=== PATIENT | female | born 1965 | race Caucasian/White ===

== ENCOUNTER 2019-04-19 16:21 | Inpatient (IN) | payer MEDICARE, MEDICAID ==
--- NOTE | 2019-04-19 17:51 | ED Physician Chart ---
ED Chief Complaint/HPI - Patient Information Date Seen:: 04/19/19 Time Seen:: 16:45 Chief Complaint:: Weakness History of Present Illness:: onset x 3 days of weakness, anorexia, and weight loss; no report of/pt denies trauma, H/As, neck pain, cough, C/P, SOB, Abd. Pain, fever, chills, N/V/D/C, SIs , or urinary s/s Allergies:: Allergies Allergy/AdvReac Type Severity Reaction Status Date / Time aspirin Allergy Verified 04/19/19 16:36 lithium Allergy Verified 04/19/19 16:36 Vitals:: Vital Signs - 8 hr 04/19/19 04/19/19 16:47 17:05 Temp 98.2 F 98.4 F HR 79 66 RR 18 18 BP 107/87 124/73 O2 Sat % 97 97 Historian:: Patient, Family Member Review:: Nurse's Note Reviewed, Old Chart Reviewed <Latrell Morrison - Last Filed: 04/19/19 18:11> - Patient Information Allergies:: Allergies Allergy/AdvReac Type Severity Reaction Status Date / Time aspirin Allergy Verified 04/19/19 16:36 lithium Allergy Verified 04/19/19 16:36 Vitals:: Vital Signs - 8 hr 04/19/19 04/19/19 16:47 17:05 Temp 98.2 F 98.4 F HR 79 66 RR 18 18 BP 107/87 124/73 O2 Sat % 97 97 <Reji Esquivel - Last Filed: 04/19/19 21:58> ED Review of Systems - Review of Systems General/Constitutional: No fever, No chills, No weight loss, Weakness, No diaphoresis, No edema, No loss of appetite Skin: No skin lesions, No rash, No bruising Head: No headache, No light-headedness Eyes: No loss of vision, No pain, No diplopia ENT: No earache, No nasal drainage, No sore throat, No tinnitus Neck: No neck pain, No swelling, No thyromegaly, No stiffness, No mass noted Cardio Vascular: No chest pain, No palpitations, No PND, No orthopnea, No edema Pulmonary: No SOB, No cough, No sputum, No wheezing GI: No nausea, No vomiting, No diarrhea, No pain, No melena, No hematochezia, No constipation, No hematemesis G/U: No dysuria, No frequency, No hematuria, No nacturia Senior Pharmacy Technician: No vaginal discharge, No abnormal vaginal bleed, No contraction Musculoskeletal: No bone or joint pain, No back pain, No muscle pain Endocrine: No polyuria, No polydipsia Psychiatric: No prior psych history, No depression, No anxiety, No suicidal ideation, No homicidal ideation, No auditory hallucination, No visual hallucination Hematopoietic: No bruising, No lymphadenopathy Allergic/Immuno: No urticaria, No angioedema Neurological: No syncope, No focal symptoms, Weakness, No paresthesia, No headache, No seizure, No dizziness, No confusion, No vertigo <Latrell Morrison - Last Filed: 04/19/19 18:11> ED Past Medical History - Past Medical History Obtainable: Yes Past Medical History: HTN, Asthma/COPD, PUD/GERD Family History: HTN Social History: Non Smoker, No Alcohol, No Drug Use, Single, Care Facility Surgical History: Cholecystectomy, other (Gastric Bypass Surgery) Psychiatricy History: Bipolar Medication: Reviewed <Latrell Morrison - Last Filed: 04/19/19 18:11> Family Medical History - Family Member Mother History Unknown: Yes <Latrell Morrison - Last Filed: 04/19/19 18:11> ED Physical Exam - Physical Examination General/Constitutional: Awake, Well-developed, well-nourished, Alert, No distress, GCS 15, Non-toxic appearing, Ambulatory Head: Atraumatic Eyes: Lids, conjuctiva normal, PERRL, EOMI Skin: Nl inspection, No rash, No skin lesions, No ecchymosis, Well hydrated, No lymphadenopathy ENMT: External ears, nose nl, TM canals nl, Nasal exam nl, Lips, teeth, gums nl , Oropharynx nl, Tonsils nl Neck: Nontender, Full ROM w/o pain, No JVD, No nuchal rigidity, No bruit, No mass, No stridor Respiratory: Nl effort/Exclusion, Clear to Auscultation, No Wheeze/Rhonchi/Rales Cardio Vascular: RRR, No murmur, gallop, rubs, NL S1 S2, Carotid/Femoral/Distal pulses equal bilaterally GI: No tenderness/rebounding/guarding, No organomegaly, No hernia, Normal BS's, Nondistended, No mass/bruits, No McBurney tenderness : No CVA tenderness Extremities: No tenderness or effusion, Full ROM, normal strength in all extremities, No edema, Normal digits & nails Neuro/Psych: Alert/oriented, DTR's symmetric, Normal sensory exam, Normal motor strength, Judgement/insight normal, Mood normal, Normal gait, No focal deficits Misc: Normal back, No paraspinal tenderness <Latrell Morrison - Last Filed: 04/19/19 18:11> ED Labs/Radiology/EKG Results - Lab Results Comments:: Reviewed <Latrell Morrison - Last Filed: 04/19/19 18:11> - Lab Results Results: Laboratory Tests 04/19/19 04/19/19 04/19/19 19:00 19:00 19:00 WBC 3.9 L RBC 4.44 Hgb 12.5 Hct 37.2 L MCV 83.7 MCH 28.1 MCHC Differential 33.6 RDW 13.4 Plt Count 154 MPV 7.8 Neutrophils % 60.1 Lymphocytes % 29.6 Monocytes % 8.0 Eosinophils % 0.2 Basophils % 2.1 H PT 10.4 INR 1.00 PTT (Actin FS) 35.6 Sodium 135 L Potassium 3.9 Chloride 94 L Carbon Dioxide 34.9 H Anion Gap 10.0 BUN 6 L Creatinine 0.7 Est GFR ( Amer) > 60.0 Est GFR (Non-Af Amer) > 60.0 BUN/Creatinine Ratio 8.6 Glucose 95 Whole Bld Lactic Acid Calcium 8.8 Total Bilirubin 0.4 AST 16 ALT 9 Alkaline Phosphatase 74 Creatine Kinase 16 L Troponin I Total Protein 5.1 L Albumin 2.7 L Globulin 2.4 Albumin/Globulin Ratio 1.1 Amylase 18 L Lipase 13 Serum , Qual 04/19/19 04/19/19 19:00 19:00 WBC RBC Hgb Hct MCV MCH MCHC Differential RDW Plt Count MPV Neutrophils % Lymphocytes % Monocytes % Eosinophils % Basophils % PT INR PTT (Actin FS) Sodium Potassium Chloride Carbon Dioxide Anion Gap BUN Creatinine Est GFR ( Amer) Est GFR (Non-Af Amer) BUN/Creatinine Ratio Glucose Whole Bld Lactic Acid 0.63 Calcium Total Bilirubin AST ALT Alkaline Phosphatase Creatine Kinase Troponin I 0.01 Total Protein Albumin Globulin Albumin/Globulin Ratio Amylase Lipase Serum , Qual NEGATIVE <Reji Esquivel - Last Filed: 04/19/19 21:58> ED Septic Shock - . Is Septic Shock (SBP<90, OR Lactate>4 mmol\L) present?: No - <6hrs of presentation: Vital Signs: Vital Signs - 8 hr 04/19/19 04/19/19 16:47 17:05 Temp 98.2 F 98.4 F HR 79 66 RR 18 18 BP 107/87 124/73 O2 Sat % 97 97 <Latrell Morrison - Last Filed: 04/19/19 18:11> - . Is Septic Shock (SBP<90, OR Lactate>4 mmol\L) present?: No - <6hrs of presentation: Vital Signs: Vital Signs - 8 hr 04/19/19 04/19/19 16:47 17:05 Temp 98.2 F 98.4 F HR 79 66 RR 18 18 BP 107/87 124/73 O2 Sat % 97 97 <Reji Esquivel - Last Filed: 04/19/19 21:58> ED Reassessment (Disposition) - Reassessment Reassessment Condition:: Improved - Diagnosis Diagnosis:: Weakness; Anorexia; Weight Loss <Latrell Morrison - Last Filed: 04/19/19 18:11> - Diagnosis Diagnosis:: Dehydration - Patient Disposition Admitted to:: Med/Surg Spoke to:: Malachi Cook Admitting Medical Physician:: Malachi Cook Condition at Disposition:: Stable, Unchanged <Reji Esquivel - Last Filed: 04/19/19 21:58>
[2019-04-19] MEDS ORDERED: Sodium Chloride 0.9% 1,000 ML IV ONE ×2 (18:14→21:11)
[2019-04-19 19:08] LABS: % BASOPHILS 2.1 % (0.0-2.0); % EOSINOPHILS 0.2 % (0.0-5.0); % LYMPHOCYTES 29.6 % (20.0-50.0); % NEUTROPHILS 60.1 % (40.0-80.0); BASOPHILE ABSOLUTE 0.1 Th/cumm (0-0.2); HEMATOCRIT 37.2 % (41.0-60); HEMOGLOBIN 12.5 gm/dL (12-16); LYMPHOCYTE ABSOLUTE 1.2 Th/cmm (1.5-3.0); MEAN CELL VOLUME 83.7 fl (81-100); MEAN CORPUSCULAR HEMOGLOBIN 28.1 pg (27.0-31.0); MEAN CORPUSCULAR HGB CONC 33.6 pg (28.0-36.0); MONOCYTE ABSOLUTE 0.3 Th/cmm (0.3-1.0); NEUTROPHILE ABSOLUTE 2.3 Th/cmm (1.8-8.0); PLATELET COUNT 154 Th/cmm (150-400); RED BLOOD COUNT 4.44 Mil/cmm (3.80-5.10); RED CELL DISTRIBUTION WIDTH 13.4 % (11.5-20.0)
[2019-04-19 19:10] LABS: WHITE BLOOD COUNT 3.9 Th/cmm (4.8-10.8)
[2019-04-19 19:29] LABS: ALB/GLOB RATIO 1.1 (1.0-1.8); ALBUMIN 2.7 gm/dL (3.7-5.3); ALKALINE PHOSPHATASE 74 U/L (34-104); AMYLASE SERUM 18 U/L (29-103); BILIRUBIN,TOTAL 0.4 mg/dL (0.3-1.0); BUN - UREA NITROGEN 6 mg/dL (7-25); CALCIUM SERUM 8.8 mg/dL (8.6-10.3); CARBON DIOXIDE 34.9 mEq/L (21.0-31.0); CHLORIDE 94 mEq/L (98-107); CREATININE - SERUM 0.7 mg/dL (0.6-1.2); CREATININE KINASE 16 U/L (30-223); GFR AFRICAN-AMERICAN > 60.0 ml/min (>90); GFR NON AFRICAN-AMERICAN > 60.0 ml/min; GLUCOSE 95 mg/dL (70-105); LIPASE 13 U/L (11-82); POTASSIUM SERUM 3.9 mEq/L (3.5-5.1); SGOT 16 U/L (13-39); SGPT/ALT 9 U/L (7-52); SODIUM SERUM 135 mEq/L (136-145); TOTAL PROTEIN,SERUM 5.1 gm/dL (6.0-8.3)
[2019-04-19] MEDS ORDERED: guaiFENesin 200 MG/10 ML UDC PO PRN (21:56)
--- NOTE | 2019-04-19 23:03 | History & Physical ---
ADMIT DATE: 04/20/2019 INTERNAL MEDICINE HISTORY AND PHYSICAL This is a ____ Dr. Gonzalez. CHIEF COMPLAINT: Generalized weakness. HISTORY OF PRESENT ILLNESS: This is a 54-year-old female with history of bipolar disorder, morbid obesity, status post gastric bypass surgery, status post gallbladder surgery. Apparently, was sent from nursing facility by Dr. Gonzalez secondary to not eating, apparently lost 50 pounds in the last few months. The patient just does not have an appetite. The patient admitted for further management. PAST MEDICAL HISTORY: As mentioned in history of present illness. PAST SURGICAL HISTORY: As mentioned above. ALLERGIES: ASPIRIN, LITHIUM. MEDICATIONS: Tylenol, famotidine, pantoprazole, nifedipine, multivitamin, montelukast, Colace, clonidine, Dulcolax, Xanax. FAMILY HISTORY: Noncontributory. SOCIAL HISTORY: The patient is a care home patient, requiring 24-hour total care. REVIEW OF SYSTEMS: This is limited secondary to the patient's current mental state. GENERAL: Complains of significant weight loss. HEENT: No blurred vision or pain. LUNGS: No diagnosis of COPD or asthma. HEART: The patient with history of hypertension. ABDOMEN: History of gastric bypass surgery. No appetite. GENITOURINARY: The patient denies increased frequency or dysuria. NEUROLOGIC: No headache, seizure or syncope. PSYCHIATRIC: As stated above. PHYSICAL EXAMINATION: VITAL SIGNS: Blood pressure 124/73, respirations 18, pulse 66, temperature 98.4, morbidly obese female in no acute distress. NECK: Supple. No mass. LUNGS: Equal breath sounds with few rhonchi. HEART: Regular rate and rhythm without appreciable murmur. ABDOMEN: Soft, globular. EXTREMITIES: Positive excoriations. NEUROLOGIC: Limited in all 4 extremities. LABORATORY DATA: WBC 3.9, hemoglobin 12.5, platelets 154. Sodium 135, potassium 3.9, BUN 6, creatinine 0.7. Troponin negative x 1. Albumin 2.7. ASSESSMENT AND PLAN: Anorexia, failure to thrive and bipolar disorder, morbid obesity, hyponatremia, protein-calorie malnutrition. We will continue the patient on IV hydration. We will refer the patient to Oncology for workup as well as GI for endoscopy. Psychiatry has also been consulted, Dr. Vazquez. We will send calcium markers. We will perform a calorie count. We will obviously not put a G-tube if it is not appropriate, which according to nursing was the patient's request. We will appropriately manage the patient. JOB# [id number]
[2019-04-19] MEDS: D5-0.45NS 1,000 ML IV SCH (23:22)
[2019-04-20] MEDS ORDERED: Non-Formulary Item 1 EA (Omeprazole [Omeprazole] 20 MG) PO SCH (07:30)
--- NOTE | 2019-04-20 09:05 | Internal Medicine Prog Note ---
Internal Medicine Subjective - Subjective Patient seen and examined:: with staff, chart reviewed, other (states no appetite) Patient is:: awake, verbal, interactive, in bed Patient Complaints of:: vomitting, constipation, unable to sleep, weight loss Per staff patient has:: no adverse event, no episodes of fall, poor appetite, poor oral intake, tolerating meds Internal Medicine Objective - Results Result Diagrams: 04/19/19 19:00 04/19/19 19: Recent Labs: Laboratory Last Values WBC 3.9 Th/cmm (4.8-10.8) L 04/19/19 19:00 RBC 4.44 Mil/cmm (3.80-5.10) 04/19/19: Hgb 12.5 gm/dL (12-16) 04/19/19: Hct 37.2 % (41.0-60) L 04/19/19:00 MCV 83.7 fl (81-100) 04/19/19:00 MCH 28.1 pg (27.0-31.0) 04/19/19: MCHC Differential 33.6 pg (28.0-36.0) 04/19/19: RDW 13.4 % (11.5-20.0) 04/19/19: Plt Count 154 Th/cmm (150-400) 04/19/19 19:00 MPV 7.8 fl 04/19/19 19:00 Neutrophils % 60.1 % (40.0-80.0) 04/19/19: Lymphocytes % 29.6 % (20.0-50.0) 04/19/19: Monocytes % 8.0 % (2.0-10.0) 04/19/19 19:00 Eosinophils % 0.2 % (0.0-5.0) 04/19/19: Basophils % 2.1 % (0.0-2.0) H 04/19/19 19: PT 10.4 SECONDS (9.5-11.5) 04/19/19 19:00 INR 1.00 (0.5-1.4) 04/19/19 19:00 PTT (Actin FS) 35.6 SECONDS (26.0-38.0) 04/19/19 19:00 Sodium 135 mEq/L (136-145) L 04/19/19 19:00 Potassium 3.9 mEq/L (3.5-5.1) 04/19/19 19:00 Chloride 94 mEq/L (98-107) L 04/19/19 19:00 Carbon Dioxide 34.9 mEq/L (21.0-31.0) H 04/19/19 19:00 Anion Gap 10.0 (7.0-16.0) 04/19/19 19:00 BUN 6 mg/dL (7-25) L 04/19/19 19:00 Creatinine 0.7 mg/dL (0.6-1.2) 04/19/19 19:00 Est GFR ( Amer) > 60.0 ml/min (>90) 04/19/19:00 Est GFR (Non-Af Amer) > 60.0 ml/min 04/19/19 19:00 BUN/Creatinine Ratio 8.6 04/19/19 19:00 Glucose 95 mg/dL (70-105) 04/19/19 19:00 Whole Bld Lactic Acid 0.63 mmol/L (0.60-1.99) 04/19/19 19:00 Calcium 8.8 mg/dL (8.6-10.3) 04/19/19 19:00 Total Bilirubin 0.4 mg/dL (0.3-1.0) 04/19/19 19:00 AST 16 U/L (13-39) 04/19/19 19:00 ALT 9 U/L (7-52) 04/19/19 19:00 Alkaline Phosphatase 74 U/L (34-104) 04/19/19 19:00 Creatine Kinase 16 U/L (30-223) L 04/19/19 19:00 Troponin I 0.01 ng/mL (0.01-0.05) 04/19/19 19:00 Total Protein 5.1 gm/dL (6.0-8.3) L 04/19/19 19:00 Albumin 2.7 gm/dL (3.7-5.3) L 04/19/19 19:00 Globulin 2.4 gm/dL 04/19/19 19:00 Albumin/Globulin Ratio 1.1 (1.0-1.8) 04/19/19 19:00 Amylase 18 U/L (29-103) L 04/19/19 19:00 Lipase 13 U/L (11-82) 04/19/19 19:00 Serum , Qual NEGATIVE (NEGATIVE) 04/19/19 19:00 Urine Test NEGATIVE 04/19/19 00:00 - Physical Exam Vitals and I&O: Vital Signs Temp 97 F 04/20/19 03:51 Pulse 57 04/20/19 03:51 Resp 18 04/20/19 03:51 BP 129/80 04/20/19 03:51 Pulse Ox 97 04/20/19 03:51 Intake & Output 04/19/19 04/20/19 04/20/19 18:59 06:59 18:59 Output Total 800 Balance -800 Weight (lbs) 147.418 kg 146.51 kg Output: Urine 800 Other: # Voids 2 # Bowel Movements 1 Weight Source Patient stated Bedscale Active Medications: Current Medications Acetaminophen (Tylenol) 650 mg PO Q4H PRN PRN Reason: Pain Or Fever above 101 Stop: 06/18/19 21:55 Alprazolam (Xanax) 0.5 mg PO Q8H PRN; Protocol PRN Reason: Anxiety Stop: 06/18/19 21:51 Bisacodyl (Dulcolax 5 Mg Ec Tab) 10 mg PO DAILY PRN PRN Reason: Constipation Stop: 06/18/19 21:51 Docusate Sodium (Colace) 100 mg PO BID [facility] Stop: 06/19/19 08:59 Guaifenesin (Robitussin) 200 mg PO Q4H PRN PRN Reason: Cough or Congestion Stop: 06/18/19 21:55 Heparin Sodium (Porcine) (Heparin) 5,000 units SUBQ Q12HR [facility] Stop: 06/19/19 08:59 Dextrose/Sodium Chloride (D5-0.45ns) 1,000 mls @ 80 mls/hr IV .[id number] [facility] Stop: 06/18/19 21:59 Last Admin: 04/19/19 23:22 Dose: 80 mls/hr Miscellaneous (Omeprazole [Omeprazole]) 20 mg PO BIDAC [facility] Stop: 06/19/19 07:29 Montelukast Sodium (Singulair) 10 mg PO DAILY OSMEL Stop: 06/19/19 08:59 Nifedipine (Procardia Xl) 60 mg PO DAILY OSMEL Stop: 06/19/19 08:59 Ondansetron HCl (Zofran) 4 mg IV Q8H PRN PRN Reason: Nausea / Vomiting Stop: 06/18/19 21:55 General: alert, obese, appears older HEENT: NC/AT, EOMI Neck: Supple, No JVD Lungs: CTAB Cardiovascular: RRR, Normal S1, Normal S2, without murmur Abdomen: soft, globular, non-distended, positive bowel sound Extremities: excoriation Neurological: no change - Procedures Procedures: Procedures Procedure Code Date DO NOT USE LAPAROSCOPIC CHOLECYSTECTOMY 91517 03/14/96 C.A.T. SCAN OF HEAD 87.03 07/03/97 DX ULTRASOUND-HEAD/NECK 88.71 07/03/97 DX ULTRASOUND-HEART 88.72 07/03/97 ELECTROCARDIOGRAM 89.52 01/04/01 ELECTROCARDIOGRAM COMPLETE 77520 01/04/01 ELECTROCARDIOGRAPH MONIT 89.54 07/03/97 LAPAROSCOPIC CHOLECYSTECTOMY 51.23 03/14/96 Internal Medicine Assmt/Plan - Assessment Assessment: ASSESSMENT AND PLAN: Anorexia, failure to thrive and bipolar disorder, morbid obesity, hyponatremia, protein-calorie malnutrition. leukopenia - Plan Plan: PLAN: We will continue the patient on IV hydration. We will refer the patient to Oncology for workup as well as GI for endoscopy. Psychiatry has also been consulted, Dr. Vazquez. We will send calcium markers. We will perform a calorie count. We will obviously not put a G-tube if it is not appropriate, which according to nursing was the patient's request. We will appropriately manage the patient.
[2019-04-20] MEDS: NIFEdipine 30 mg ER Tab PO SCH (09:31)
[2019-04-20] MEDS: Multivitamin w/ Minerals Tab PO SCH (09:31)
[2019-04-20] MEDS: Heparin Sod 5,000Units/ML 5,000 UNITS/ML VIAL SUBQ SCH ×2 (09:31→21:46)
--- NOTE | 2019-04-20 10:36 | Diagnostic Imaging Report ---
CHEST X-RAY: AP view INDICATION: Weight loss COMPARISON: None FINDINGS: Suboptimal lung volumes are noted. Minimal chronic changes are noted. There is no focal consolidation or pleural effusions The heart is normal in size. Degenerative changes of the spine are noted. There is a old left mid to distal clavicular fracture. IMPRESSION: Mild chronic lung changes. No focal consolidation identified. Consider follow-up CT examination if indicated given patient's clinical history.
[2019-04-20] MEDS: D5-0.45NS 1,000 ML IV SCH (12:30)
--- NOTE | 2019-04-20 13:29 | Consultation ---
DATE OF CONSULTATION: 04/20/2019 REFERRING PHYSICIAN: Dr. Cook. REASON FOR CONSULTATION: Leukopenia and unexplained weight loss. HISTORY OF PRESENT ILLNESS: The patient is a 54-year-old female with a history of morbid obesity, status post gastric bypass surgery, Slava-en-Y about 7 years ago. The patient was in nursing facility or not eating, losing over 50 pounds in the last month. She does not have a history of malignancy and she is having poor appetite. PAST MEDICAL HISTORY: Bipolar disorder, morbid obesity. PAST SURGICAL HISTORY: Gastric bypass surgery and gallbladder surgery. MEDICATIONS: Reviewed. SOCIAL HISTORY: Resides in a nursing facility recently. PHYSICAL EXAMINATION: GENERAL: She is awake, alert, oriented, morbidly obese. NECK: No lymphadenopathy. No peripheral lymphadenopathy. CHEST: Equal air entry. ABDOMEN: Soft, obese. EXTREMITIES: Edema of lower extremities. NERVOUS SYSTEM: No focal deficits. LABORATORY DATA: White count 3.9, hemoglobin 12.5, platelets 154. PT, PTT normal. Creatinine 0.7. Liver functions normal. Albumin 2.7, total protein 5.1. Chest x-ray, no consolidation. ASSESSMENT: Mild leukopenia. The duration is unknown. No old records in the computer. The patient had a gastric bypass and it is likely that she has malabsorption issues with some of the nutritional elements; therefore, I will evaluate for malnutrition and malabsorption syndrome associated with the gastric bypass by checking copper, zinc, iron studies, B12, folate level and vitamin D. The patient has good renal functions and calcium level and if the results are unrevealing, CT scan of the abdomen and pelvis will be considered. Thank you, Dr. Cook for the opportunity to participate in the care of this interesting case. JOB# [id number]
[2019-04-20] MEDS: buPROPion XL 150 mg T 24 H PO SCH (14:01)
[2019-04-20 19:56] LABS: URINE BILIRUBIN NEGATIVE (NEGATIVE); URINE BLOOD NEGATIVE (NEGATIVE); URINE GLUCOSE (UA) NEGATIVE (NEGATIVE); URINE KETONE NEGATIVE (NEGATIVE); URINE LEUKOCYTE ESTERASE SMALL (NEGATIVE); URINE NITRATE NEGATIVE (NEGATIVE); URINE PH 7.5 (4.6 - 8.0); URINE PROTEIN NEGATIVE (NEGATIVE); URINE SOURCE MIDSTREAM; URINE UROBILINOGEN 0.2 E.U./dL (0.2 - 1.0)
[2019-04-20 19:59] LABS: URINE CLARITY CLEAR (CLEAR); URINE COLOR YELLOW; URINE MICROSCOPIC INDICATED? YES
[2019-04-20 20:10] LABS: URINE RBC NONE SEEN /hpf (0-5)
[2019-04-20 20:11] LABS: URINE BACTERIA OCCASIONAL /hpf (NONE SEEN); URINE EPITHELIAL CELLS FEW /lpf (FEW)
--- NOTE | 2019-04-21 02:53 | Consultation ---
DATE OF CONSULTATION: 04/20/2019 IDENTIFYING INFORMATION: The patient is a 54-year-old female. HISTORY OF PRESENT ILLNESS: The patient is admitted because of generalized weakness with history of bipolar disorder, morbid obesity, post-gastric bypass surgery, and gallbladder surgery. She was sent from nursing facility by Dr. Rick Gonzalez because of not eating, she lost 50 pounds in the last few months. The patient does not have an appetite. She is admitted for further management. The patient when I talked to her, she was cooperative. She reports that she does not feel like eating, somehow the food does not taste very good. She reports that she in general also does not sleep well. She reports that she refuses the food because she feels nauseated, it was very bitter, poor taste. She denies any current intent to harm herself or anyone. She denies current auditory or visual hallucination. PAST PSYCHIATRIC HISTORY: The patient reports she has long history of schizoaffective disorder dating back to when she was 19 years of age with multiple prior hospitalizations with multiple prior suicide attempts. She has history of cutting herself, overdosing, history of hearing voices, but they were never command hallucinations. She has history of depression and manic episodes. MEDICAL HISTORY: The patient has a gastric bypass, morbid obesity, hyponatremia, and protein-calorie malnutrition. The patient is on IV hydration. She was referred to Oncology for workup as well as GI for endoscopy. MEDICATIONS: The patient was restarted on her medications, which was Zyprexa and Xanax. ALLERGIES: THE PATIENT IS ALLERGIC TO LITHIUM AND ASPIRIN. FAMILY AND SOCIAL HISTORY: The patient reports she has a partner, no children. She lives currently in a nursing facility for the last few months because of her inability to walk. She reports that she has high school education. She has been disability since age 19. She denies any substance abuse. She denies family history of psychotic disorder. MENTAL STATUS EXAMINATION: The patient was appropriately dressed, not very well groomed. She was in bed. She is morbidly obese, unable to make safe plan for self-care. She was able to carry on a conversation and she make sense. She was alert and oriented to place, person, time, and situation. She denies any current intent to harm herself or anybody. She denies any current auditory or visual hallucinations or paranoia. No suicide and no homicide ideation, no intent to harm anyone. Her long or short term memory is intact. Insight and judgment is fair. IMPRESSION: Schizoaffective disorder, currently stable. Medical Diagnosis: Per medical doctor. PLAN: Recommend to continue her medications. We will continue with the Zyprexa. The patient needs follow up with the psychiatrist upon discharge. Thank you very much for allowing me to participate in the care of this most interesting lady. JOB# [id number]
[2019-04-21] MEDS: D5-0.45NS 1,000 ML IV SCH ×2 (06:10→19:45)
[2019-04-21 08:08] LABS: IRON LC 70 ug/dL (27-159); TIBC (LC) 155 ug/dL (250-450); UIBC 85 ug/dL (131-425)
[2019-04-21] MEDS: Heparin Sod 5,000Units/ML 5,000 UNITS/ML VIAL SUBQ SCH ×2 (09:35→20:38)
[2019-04-21] MEDS: Pantoprazole 40 mg EC Tab PO SCH (09:39)
[2019-04-21] MEDS: Multivitamin w/ Minerals Tab PO SCH (09:39)
[2019-04-21] MEDS: NIFEdipine 30 mg ER Tab PO SCH (09:40)
[2019-04-21] MEDS: buPROPion XL 150 mg T 24 H PO SCH (10:54)
--- NOTE | 2019-04-21 11:48 | Internal Medicine Prog Note ---
Internal Medicine Subjective - Subjective Patient seen and examined:: with staff, chart reviewed Patient is:: awake, verbal, interactive, in bed Patient Complaints of:: vomitting, constipation, unable to sleep, weight loss Per staff patient has:: no adverse event, no episodes of fall, poor appetite, poor oral intake, tolerating meds Internal Medicine Objective - Results Result Diagrams: 04/19/19 19:00 04/19/19 19: Recent Labs: Laboratory Last Values WBC 3.9 Th/cmm (4.8-10.8) L 04/19/19: RBC 4.44 Mil/cmm (3.80-5.10) 04/19/19: Hgb 12.5 gm/dL (12-16) 04/19/19: Hct 37.2 % (41.0-60) L 04/19/19: MCV 83.7 fl (81-100) 04/19/19: MCH 28.1 pg (27.0-31.0) 04/19/19: MCHC Differential 33.6 pg (28.0-36.0) 04/19/19: RDW 13.4 % (11.5-20.0) 04/19/19: Plt Count 154 Th/cmm (150-400) 04/19/19: MPV 7.8 fl 04/19/19: Neutrophils % 60.1 % (40.0-80.0) 04/19/19: Lymphocytes % 29.6 % (20.0-50.0) 04/19/19: Monocytes % 8.0 % (2.0-10.0) 04/19/19: Eosinophils % 0.2 % (0.0-5.0) 04/19/19: Basophils % 2.1 % (0.0-2.0) H 04/19/19: PT 10.4 SECONDS (9.5-11.5) 04/19/19 19: INR 1.00 (0.5-1.4) 04/19/19 19: PTT (Actin FS) 35.6 SECONDS (26.0-38.0) 04/19/19: Sodium 135 mEq/L (136-145) L 04/19/19 19:00 Potassium 3.9 mEq/L (3.5-5.1) 04/19/19 19:00 Chloride 94 mEq/L (98-107) L 04/19/19 19:00 Carbon Dioxide 34.9 mEq/L (21.0-31.0) H 04/19/19 19:00 Anion Gap 10.0 (7.0-16.0) 04/19/19 19:00 BUN 6 mg/dL (7-25) L 04/19/19 19:00 Creatinine 0.7 mg/dL (0.6-1.2) 04/19/19 19:00 Est GFR ( Amer) > 60.0 ml/min (>90) 04/19/19 19:00 Est GFR (Non-Af Amer) > 60.0 ml/min 04/19/19 19:00 BUN/Creatinine Ratio 8.6 04/19/19 19:00 Glucose 95 mg/dL (70-105) 04/19/19 19:00 Whole Bld Lactic Acid 0.63 mmol/L (0.60-1.99) 04/19/19 19:00 Calcium 8.8 mg/dL (8.6-10.3) 04/19/19 19:00 Iron 70 ug/dL (27-159) 04/20/19 14:55 TIBC 155 ug/dL (250-450) L 04/20/19 14:55 Iron Saturation 45 % (15-55) 04/20/19 14:55 Unsaturated IBC 85 ug/dL (131-425) L 04/20/19 14:55 Total Bilirubin 0.4 mg/dL (0.3-1.0) 04/19/19 19:00 AST 16 U/L (13-39) 04/19/19 19:00 ALT 9 U/L (7-52) 04/19/19 19:00 Alkaline Phosphatase 74 U/L (34-104) 04/19/19 19:00 Creatine Kinase 16 U/L (30-223) L 04/19/19 19:00 Troponin I 0.01 ng/mL (0.01-0.05) 04/19/19 19:00 Total Protein 5.1 gm/dL (6.0-8.3) L 04/19/19 19:00 Albumin 2.7 gm/dL (3.7-5.3) L 04/19/19 19:00 Globulin 2.4 gm/dL 04/19/19 19:00 Albumin/Globulin Ratio 1.1 (1.0-1.8) 04/19/19 19:00 Amylase 18 U/L (29-103) L 04/19/19 19:00 Lipase 13 U/L (11-82) 04/19/19 19:00 Serum , Qual NEGATIVE (NEGATIVE) 04/19/19 19:00 Urine Source MIDSTREAM 04/19/19 20:16 Urine Color YELLOW 04/19/19 20:16 Urine Clarity CLEAR (CLEAR) 04/19/19 20:16 Urine pH 7.5 (4.6 - 8.0) 04/19/19 20:16 Ur Specific [place] 1.010 (1.005-1.030) 04/19/19 20:16 Urine Protein NEGATIVE mg/dL (NEGATIVE) 04/19/19 20:16 Urine Glucose (UA) NEGATIVE mg/dL (NEGATIVE) 04/19/19 20:16 Urine Ketones NEGATIVE mg/dL (NEGATIVE) 04/19/19 20:16 Urine Blood NEGATIVE (NEGATIVE) 04/19/19 20:16 Urine Nitrate NEGATIVE (NEGATIVE) 04/19/19 20:16 Urine Bilirubin NEGATIVE (NEGATIVE) 04/19/19 20:16 Urine Urobilinogen 0.2 E.U./dL (0.2 - 1.0) 04/19/19 20:16 Ur Leukocyte Esterase SMALL (NEGATIVE) H 04/19/19 20:16 Urine RBC NONE SEEN /hpf (0-5) 04/19/19 20:16 Urine WBC 2-5 /hpf (0-5) 04/19/19 20:16 Ur Epithelial Cells FEW /lpf (FEW) 04/19/19 20:16 Urine Bacteria OCCASIONAL /hpf (NONE SEEN) 04/19/19 20:16 Urine Test NEGATIVE 04/19/19 00:00 - Physical Exam Vitals and I&O: Vital Signs Temp 97.5 F 04/21/19 08:00 Pulse 65 04/21/19 09:40 Resp 20 04/21/19 08:00 BP 155/88 04/21/19 09:40 Pulse Ox 99 04/21/19 08:00 Intake & Output 04/20/19 04/21/19 04/21/19 18:59 06:59 18:59 Intake Total 1000 1650 Balance 1000 1650 Weight (lbs) 146.51 kg Intake: Intake, IV Amount 1000 1000 D5-0.45NS 1,000 ml @ 80 1000 1000 mls/hr IV .[id number] [facility] Rx #:[id number] Oral 650 Other: # Voids 3 # Bowel Movements 0 Weight Source Bedscale Active Medications: Current Medications Acetaminophen (Tylenol) 650 mg PO Q4H PRN PRN Reason: Pain Or Fever above 101 Stop: 06/18/19 21:55 Alprazolam (Xanax) 0.5 mg PO Q8H PRN; Protocol PRN Reason: Anxiety Stop: 06/18/19 21:51 Bisacodyl (Dulcolax 5 Mg Ec Tab) 10 mg PO DAILY PRN PRN Reason: Constipation Stop: 06/18/19 21:51 Bupropion HCl (Wellbutrin Xl) 150 mg PO DAILY [facility]; Protocol Stop: 06/19/19 12:59 Last Admin: 04/21/19 10:54 Dose: 150 mg Chlorpromazine (Thorazine) 200 mg PO HS [facility]; Protocol Stop: 06/19/19 20:59 Last Admin: 04/20/19 21:45 Dose: 200 mg Docusate Sodium (Colace) 100 mg PO BID [facility] Stop: 06/19/19 08:59 Last Admin: 04/21/19 09:39 Dose: Not Given Duloxetine HCl (Cymbalta) 30 mg PO BID [facility]; Protocol Stop: 06/19/19 16:59 Last Admin: 04/21/19 09:39 Dose: 30 mg Guaifenesin (Robitussin) 200 mg PO Q4H PRN PRN Reason: Cough or Congestion Stop: 06/18/19 21:55 Heparin Sodium (Porcine) (Heparin) 5,000 units SUBQ Q12HR [facility] Stop: 06/19/19 08:59 Last Admin: 04/21/19 09:35 Dose: 5,000 units Dextrose/Sodium Chloride (D5-0.45ns) 1,000 mls @ 80 mls/hr IV .[id number] [facility] Stop: 06/18/19 21:59 Last Admin: 04/21/19 06:10 Dose: 80 mls/hr Megestrol Acetate (Megace) 400 mg PO BID [facility]; Protocol Stop: 06/20/19 16:59 Montelukast Sodium (Singulair) 10 mg PO DAILY [facility] Stop: 06/19/19 08:59 Last Admin: 04/21/19 09:40 Dose: 10 mg Nifedipine (Procardia Xl) 60 mg PO DAILY [facility] Stop: 06/19/19 08:59 Last Admin: 04/21/19 09:40 Dose: 60 mg Olanzapine (Zyprexa) 20 mg PO HS [facility]; Protocol Stop: 06/19/19 20:59 Last Admin: 04/20/19 21:44 Dose: 20 mg Ondansetron HCl (Zofran) 4 mg IV Q8H PRN PRN Reason: Nausea / Vomiting Stop: 06/18/19 21:55 Oxcarbazepine (Trileptal) 300 mg PO BID [facility]; Protocol Stop: 06/19/19 16:59 Last Admin: 04/21/19 09:39 Dose: 300 mg Pantoprazole Sodium (Protonix) 40 mg PO QDAC [facility] Stop: 06/20/19 07:29 Last Admin: 04/21/19 09:39 Dose: 40 mg Temazepam (Restoril) 30 mg PO HS PRN; Protocol PRN Reason: Insomnia Stop: 06/19/19 13:01 General: alert, obese, appears older HEENT: NC/AT, EOMI Neck: Supple, No JVD Lungs: CTAB Cardiovascular: RRR, Normal S1, Normal S2, without murmur Abdomen: soft, globular, non-distended, positive bowel sound Extremities: excoriation Neurological: no change - Procedures Procedures: Procedures Procedure Code Date DO NOT USE LAPAROSCOPIC CHOLECYSTECTOMY 30511 03/14/96 C.A.T. SCAN OF HEAD 87.03 07/03/97 DX ULTRASOUND-HEAD/NECK 88.71 07/03/97 DX ULTRASOUND-HEART 88.72 07/03/97 ELECTROCARDIOGRAM 89.52 01/04/01 ELECTROCARDIOGRAM COMPLETE 25097 01/04/01 ELECTROCARDIOGRAPH MONIT 89.54 07/03/97 LAPAROSCOPIC CHOLECYSTECTOMY 51.23 03/14/96 Internal Medicine Assmt/Plan - Assessment Assessment: ASSESSMENT AND PLAN: Anorexia, failure to thrive and bipolar disorder, morbid obesity, hyponatremia, protein-calorie malnutrition. leukopenia - Plan Plan: PLAN: We will continue the patient on IV hydration. We will refer the patient to Oncology for workup as well as GI for endoscopy. Psychiatry has also been consulted, Dr. Vazquez. We will send calcium markers. We will perform a calorie count. We will obviously not put a G-tube if it is not appropriate, which according to nursing was the patient's request. We will appropriately manage the patient. Nutritional Asmnt/Malnutr-PDOC - Dietary Evaluation Malnutrition Findings (Please click <Entered> for more info): Nutritional Asmnt/Malnutrition Start: 04/20/19 12: 05 Text: Status: Complete Freq: Protocol: Document 04/20/19 12:05 MARGARITA (Rec: 04/20/19 12:14 MARGARITA MASCORRO- [email or web address]) Nutritional Asmnt/Malnutrition Patient General Information Nutritional Screening High Risk Consult Diagnosis Generalized weakness, anorexia , dehydration Pertinent Medical Hx/Surgical Hx Bipolar disorder, morbid obesity, status post gastric bypass surgery, status post gallbladder surgery. Subjective Information Consult received for Calorie Count (in thes setting of weight loss and anorexia). Patient was admitted from nursing facility after not eating (per H&P), where he lost 50 lbs in the last few months. I put up calorie count envelope in room for RN's to collect patient's meal tickets , with % eaten of each food recorded. Spoke with patient and her partner; patient states she had gastric bypass surgery 7 years ago. She admits she has not kept up with the vitamins or protein supplements. She states she " eats like a 5 year old". Food likes are grilled cheese, PB&J , corn, raisin bran/other dry cereal, snacks, diet sodas/ crystal light. States she weighed 378lb at the beginning of February, and with her poor appetite and nausea, she has lost 55lb (unintentional, 14% in 2 months.) She states she will likely not like the foods we send her. Denied supplements. Agreed to try to eat due to calorie count. Current Diet Order/ Nutrition Support Fat controlled (50gm) Patient / S.O Not Indicated Pertinent Medications dulcolax, D5-0.45 NS, colace, zofran Pertinent Labs (04/19) Albumin 2.7 Nutritional Hx/Data Height 1.7 m Height (Calculated Centimeters) 170.2 Current Weight (lbs) 146.51 kg Weight (Calculated Kilograms) 146.5 Weight (Calculated Grams) 799788.3 Stryker Body Weight 135 % Stryker Body Weight 239 Body Mass Index (BMI) 50.5 Recent Weight Change Yes Weight Status Morbidly Obese GI Symptoms GI Symptoms None Last BM 04/20 x 1 Difficult in: None Food Allergies No Cultural/Ethnic/Amish Belief none indicated Usual diet at home regular Skin Integrity/Comment: Verena 16, scratches on right lateral thigh Estimated Nutritional Goals BEE in Kcals: Adj wt of IBW Calories/Kcals/Kg Adj BW 82.7 25-30 kcal/kg Kcals Calculated ~4369-4020 kcal/day Protein: Adj wt of IBW Protein g/k.1-1.3 gm/kg Protein Calculated ~90-110gm/day Fluid: ml ~6928-7286 ml/day (1 ml/kcal) Nutritional Problem 1. Problem Problem Malnutrition related to Etiology recent weight loss and no intake with morbid obesity aeb Signs/Symptoms: BMI 50.6, hx of 55lb wt loss in 2 months per pt ( unintentional, 14% loss) Intervention/Recommendation Comments 1. Continue Fat controlled diet as tolerated by patient. 2. Encouraged oral intake; will provide food preferences. 3. RD will follow up with calorie count from Dinner 04/20 -Lunch 04/22. Expected Outcomes/Goals Expected Outcomes/Goals Adequate nutrition to meet >75 % estimated needs, improved labs, improved skin integrity, weight maintenance or trend toward ideal body weight. F/U 04/22 calorie count
--- NOTE | 2019-04-21 15:30 | Progress Notes ---
DATE: 04/21/2019 Case was discussed with staff of the patient, reviewed records. The patient apparently has been asking to have NG tube. However, the GI team wants a psych consult from that I could not think of any psychiatric reason for her to have GI tube, she can swallow and they are going to do a swallow test for her. The patient when I discussed that with her, I told them having hard time finding a reason for not to be on a G-tube and she says she has her own psychiatrist who would recommended. She was restarted on her medication, which is Wellbutrin 150 mg daily as well as Cymbalta 30 mg twice a day and she is on Zyprexa 20 mg at bedtime and Trileptal 300 mg twice a day with no side effects, no sedation or nausea, no extrapyramidal symptoms. She denies any current intent to harm herself or anyone. The patient will be followed by Dr. Vazquez this tomorrow. Thank you very much for allowing me to participate in the care of this most interesting lady. JOB# [id number]
--- NOTE | 2019-04-22 01:48 | Consultation ---
DATE OF CONSULTATION: 04/21/2019 REFERRING PHYSICIAN: Malachi Cook DO. TYPE OF CONSULTATION: Psychology. HISTORY OF PRESENT ILLNESS: The patient is a 54-year-old single female. The patient is a resident of a correction facility. The following is by record review and by the patient's self-report. The patient is being admitted to the medical floor due to generalized weakness, morbid obesity, and post-gastric bypass surgery and gallbladder surgery. The patient was admitted because of not eating and radical weight loss. The patient states she does not feel hungry. The patient stated that she believed that she was being admitted for G-tube placement and did not understand why this has not occurred. This mortgage or loan underwriter deferred this to Dr. Cook as well as the consulting GI physician. The patient states that she does not sleep well. The patient requested for her medications to be reviewed. The patient states that she does not believe that her psychotropic medications have been continued since she has been admitted. The patient denied any suicidal ideation, plan, or intention at the time of this clinical interview. PAST MEDICAL HISTORY: Status post gastric bypass, morbid obesity, hyponatremia, and protein-calorie malnutrition. The patient has been referred to Oncology for workup as well as GI for endoscopy. PAST PSYCHIATRIC HISTORY: The patient reports that she has a long history of bipolar disorder; however, the record indicates a history of schizoaffective disorder, bipolar type. The patient states she was diagnosed with this at 19 years old. The patient admitted to past prior suicide attempts by cutting herself as well as overdosing. The patient also states she has history of severe depressive and manic episodes. The patient is under the care of a psychiatrist at her correction facility. The patient also states that she has a psychologist that she sees on an outpatient basis that she has seen for many years and is comfortable with. She stated she will continue to follow up with her. CURRENT MEDICATIONS: The patient apparently has been restarted on Zyprexa and Xanax according to record review. The patient states this is an incomplete list and will provide her current medication regimen to the medical staff. ALLERGIES: LITHIUM and ASPIRIN. PSYCHOSOCIAL HISTORY: The patient reports that she lives at a correction facility that she has never been and has no children. The patient states that she has a partner. The patient stated she is a high school graduate, but has been disabled since the age of 19; and therefore, no occupational history. The patient denied any history of physical or sexual abuse or any current legal problems. SUBSTANCE USE/ABUSE HISTORY: The patient denied any history of alcohol, tobacco, or illicit drug use. MENTAL STATUS EXAMINATION: The patient appears to be her stated age. The patient's eye contact is good. Attitude is superficially cooperative. Speech is spontaneous. Mood is mildly irritable and dysphoric. Affect is mood congruent. Thought process shows to be linear, logical, and goal directed; however, there is some perseveration on medical procedures that the patient has been requesting. The patient denied any auditory or visual hallucinations; however, the patient states that she has experienced auditory hallucinations in the past but these were not command type or persecutory type. The patient denied any suicidal or homicidal ideation, plan, or intention. Impulse control is limited, but stable. Concentration is fair. The patient was able to sustain focus and attention and to respond to the clinical questions relevantly and coherently. The patient's memory seems to be intact for both short-term and long-term dimensions. Sensorium is alert and oriented x3. The patient did not participate in the interpretation of proverbs. Insight is fair. Judgment is fair. DIAGNOSTIC IMPRESSION: AXIS I: History of schizoaffective disorder, bipolar type. AXIS II: Deferred. AXIS III: Per Dr. Cook. TREATMENT PLAN: The patient has been seen by Dr. Ching for psychiatric evaluation and for the management of the patient's psychotropic medications. The patient will be continued on her current psychotropic medications as provided. We will provide supportive psychotherapy to include motivational enhancement for the patient to be compliant with all aspects of her care and treatment. We will provide coping strategies for phase of life issues as well as for chronic severe mental illness. The patient will follow up with a psychiatrist and her psychologist upon discharge. There is no indication for a followup visit; however, this mortgage or loan underwriter will consult with the attending psychiatrist and the attending physician to determine whether continued psychology services are needed. This mortgage or loan underwriter concurs with Dr. Lopez's conclusion regarding the patient's request for feeding tube placement. Thank you, Dr. Cook, for this consult and the opportunity to participate in this patient's care. [facility]# [id number] [facility]
[2019-04-22 04:35] LABS: % BASOPHILS 0.7 % (0.0-2.0); % EOSINOPHILS 0.4 % (0.0-5.0); % LYMPHOCYTES 34.6 % (20.0-50.0); % MONOCYTES 7.8 % (2.0-10.0); % NEUTROPHILS 56.5 % (40.0-80.0); HEMATOCRIT 33.6 % (41.0-60); HEMOGLOBIN 11.3 gm/dL (12-16); LYMPHOCYTE ABSOLUTE 1.5 Th/cmm (1.5-3.0); MEAN CELL VOLUME 84.6 fl (81-100); MEAN CORPUSCULAR HEMOGLOBIN 28.3 pg (27.0-31.0); MEAN CORPUSCULAR HGB CONC 33.5 pg (28.0-36.0); MONOCYTE ABSOLUTE 0.3 Th/cmm (0.3-1.0); NEUTROPHILE ABSOLUTE 2.5 Th/cmm (1.8-8.0); PLATELET COUNT 148 Th/cmm (150-400); RED BLOOD COUNT 3.97 Mil/cmm (3.80-5.10); RED CELL DISTRIBUTION WIDTH 13.7 % (11.5-20.0); WHITE BLOOD COUNT 4.3 Th/cmm (4.8-10.8)
[2019-04-22 05:23] LABS: ALB/GLOB RATIO 1.1 (1.0-1.8); ALBUMIN 2.4 gm/dL (3.7-5.3); ALKALINE PHOSPHATASE 65 U/L (34-104); ANION GAP 7.4 (7.0-16.0); BILIRUBIN,TOTAL 0.4 mg/dL (0.3-1.0); BUN - UREA NITROGEN 5 mg/dL (7-25); CALCIUM SERUM 8.5 mg/dL (8.6-10.3); CARBON DIOXIDE 34.9 mEq/L (21.0-31.0); CHLORIDE 96 mEq/L (98-107); CREATININE - SERUM 0.7 mg/dL (0.6-1.2); GFR AFRICAN-AMERICAN > 60.0 ml/min (>90); GFR NON AFRICAN-AMERICAN > 60.0 ml/min; GLUCOSE 105 mg/dL (70-105); POTASSIUM SERUM 3.3 mEq/L (3.5-5.1); SGOT 13 U/L (13-39); SGPT/ALT 7 U/L (7-52); SODIUM SERUM 135 mEq/L (136-145); TOTAL PROTEIN,SERUM 4.6 gm/dL (6.0-8.3)
[2019-04-22] MEDS: Pantoprazole 40 mg EC Tab PO SCH (06:38)
--- NOTE | 2019-04-22 08:19 | Diagnostic Imaging Report ---
Exam: CT examination abdomen pelvis HISTORY: Pain Total DLP equals 980 CTDI equals 18.4 Findings: Multiple views of the section of the abdomen pelvis obtained from lower thorax to pubic symphysis without administration of oral or intravenous contrast material, no prior studies available comparison. The study demonstrates right basilar atelectasis and pleural thickening. The liver and the spleen are intact there is evidence of splenomegaly. Previous gastric bypass surgery sequela noted. There is evidence of free cholecystectomy. The pancreas is normal. The kidneys demonstrate no evidence of obstructive uropathy or nephrolithiasis. The visualized adrenal glands intact. The device is noted in the right lower quadrant subcutaneously Fusion of L4-L5 vertebral bodies. IMPRESSION: Right basilar atelectasis, pleural thickening. Splenomegaly. Sequela of previous gastric bypass surgery. Previous cholecystectomy.
[2019-04-22] MEDS: buPROPion XL 150 mg T 24 H PO SCH ×2 (09:18→11:00)
[2019-04-22] MEDS: Multivitamin w/ Minerals Tab PO SCH ×2 (09:19→10:59)
[2019-04-22] MEDS: Heparin Sod 5,000Units/ML 5,000 UNITS/ML VIAL SUBQ SCH (09:19)
[2019-04-22] MEDS: NIFEdipine 30 mg ER Tab PO SCH ×2 (09:19→11:01)
[2019-04-22] MEDS: D5-0.45NS 1,000 ML IV SCH (10:22)
[2019-04-22] MEDS ORDERED: Potassium Chloride 20 mEq ER Tab PO ONE (13:03)
--- NOTE | 2019-04-22 18:38 | Discharge Summary ---
DATE OF DISCHARGE: 04/22/2019 CHIEF COMPLAINT: Generalized weakness. FINAL DIAGNOSES: Anorexia, failure to thrive, which is improved, bipolar disorder, morbid obesity, hyponatremia, protein-calorie malnutrition. HISTORY: This is a 54-year-old female with history of bipolar disorder, morbid obesity, status post gastric bypass surgery. Apparently, not eating, not taking her medication from the nursing facility, on a thickened liquid. The patient requests to wear a G tube. The patient was seen in the Emergency Room able to be discharged back to nursing facility. PHYSICAL EXAMINATION: VITAL SIGNS: Blood pressure 131/91, respirations 18, pulse 59, temperature 97.7, morbidly obese middle-aged female. NECK: Supple. LUNGS: Equal breath sounds, few rhonchi. HEART: Regular rate and rhythm with systolic ejection murmur. ABDOMEN: Soft. EXTREMITIES: Positive excoriations. NEUROLOGIC: Limited. HOSPITAL COURSE: The patient was admitted to medical floor, continue IV hydration. The patient was seen by Dr. Arcos for Hematology secondary to leukopenia, Dr. De Jesus for GI, Dr. Vazquez for Psychiatry, Dr. Peraza was called for Psychology. The patient family rule out as well as a G-tube request and cleared by the above consultants. The patient will provide on supportive psychotherapy. ____ at the bedside. They are agreeable for discharge back to nursing facility. CONDITION ON DISCHARGE: Fair. DISCHARGE INSTRUCTIONS: The patient to continue with current care and discharged to ____. JOB# [id number]
--- NOTE | 2019-04-22 21:34 | Consultation ---
DATE OF CONSULTATION: 04/22/2019 INPATIENT GASTROINTESTINAL CONSULTATION REFERRING PHYSICIAN: Dr. Cook. REASON FOR CONSULTATION: Malnutrition and the patient requesting feeding tube and obesity. HISTORY OF PRESENT ILLNESS: This is a 54-year-old female with bipolar disorder, morbid obesity, had gastric bypass and cholecystectomy. The patient was sent in from nursing facility because she was not eating and claims to have lost some weight. She denies having any abdominal pain, nausea, vomiting, hematemesis, melena, hematochezia or coffee ground emesis. She denies diarrhea or constipation. PAST MEDICAL HISTORY: Obesity, bipolar disorder. PAST SURGICAL HISTORY: Gastric bypass and cholecystectomy. FAMILY HISTORY: Noncontributory. SOCIAL HISTORY: Resident of [facility] facility. ALLERGIES: ASPIRIN AND LITHIUM. CURRENT MEDICATIONS: Tylenol, Xanax, Wellbutrin, Thorazine, Colace, Cymbalta, Robitussin, heparin, Megace, Singulair, Procardia, Zyprexa, Zofran, Trileptal, Protonix, Restoril. REVIEW OF SYSTEMS: Ten-point review of system was performed and the pertinent positives are obesity. All other systems were otherwise negative. PHYSICAL EXAMINATION: VITAL SIGNS: Temperature is 96.9, breathing 14, pulse of 73, blood pressure 118/65, satting 96%. GENERAL: In no apparent distress. EYES: Anicteric. Normal conjunctivae. HEENT: Normocephalic, atraumatic. Moist mucous membranes. NECK: Soft, supple. CHEST: Clear, normal effort. CARDIOVASCULAR: Regular rate and rhythm. ABDOMEN: Soft, nontender, nondistended, normal bowel sounds. SKIN: Warm and dry. EXTREMITIES: Reveal no cyanosis. PSYCHOLOGIC: Alert and oriented x 3. LABORATORY DATA: Show a white count 3.9, hemoglobin 12.5, platelets of 154. INR is 1. LFTs within normal limits. Lipase within normal limits. test was negative. CT abdomen and pelvis showed gastric bypass changes. IMPRESSION: 1. This is a 54-year-old female with obesity, malnutrition, weight loss. We are asked to see her for the patient's request of inserting a feeding tube. The patient is able to swallow and as I interview her, I do not feel that she is an appropriate candidate for a feeding tube because she is able to swallow. Her request for a feeding tube is out of the desire to eat more and receive nutrition. I explained to her that the nutrition that is given through a G-tube can also be consumed by mouth, for example, Ensure, which is given through a G-tube, can also be consumed through a straw or through the patient's mouth, it is available as a can. Once she understood this, she also stated that she does not want the feeding tube anymore. I also think that placing a feeding tube in a gastric bypass patient may not be very easy due to the anatomy changes and future complications such as leakage, malfunctioning feeding tube, gastrocutaneous fistula would be hard to manage in an obese patient. I reviewed the CT scan and did not see anything obvious that would explain any weight loss. I explained to her that gastric bypass patients are expected to lose weight due to the nature of the operation, both restrictive and malabsorptive component would lead to a reduction of calories. She does have underlying bipolar disorder, which may be affecting her ability to make decisions; therefore, having a psych evaluation would be reasonable. 2. I do not see any valid reasons for a PEG tube at this time. Should the patient ever become comatose or lose the ability to swallow or any other reasons that come up that a valid reason for PEG is required, then I would reconsider, but at this time, she is not an appropriate candidate. PLAN: 1. Encourage p.o. diet. 2. If the patient wants supplemental nutrition, get a dietitian evaluation and consider products like Ensure. 3. Psych input. 4. We will sign off. Please call if you have any questions. [facility]# [id number]
--- NOTE | 2019-04-23 01:26 | Progress Notes ---
DATE: 04/22/2019 SUBJECTIVE: Chart reviewed and the patient interviewed. Also discussed the patient's condition with the staff and reviewed records and labs. The patient is still in a depressed mood and is guarded and withdrawn. The patient also is interacting minimally with others. The patient also is still having mood swings. She seems to be less angry and less paranoid. She also interacting more. Otherwise, the patient is compliant with taking her medications with no side effects of medications. ASSESSMENT: The patient is still anxious and is still depressed. TREATMENT PLAN: We will continue monitoring her behavior and her condition. The patient is still talking about G-tube. Otherwise, no side effects of medications. We will get Trileptal blood level and we will continue to follow up her condition closely. Also, continue to work on her ineffective coping. [facility]# [id number]
[2019-04-23 05:16] LABS: FOLIC ACID 19.8 ng/mL (>3.0)
[2019-04-23 08:07] LABS: CA 15-3 AG (BREAST) 20.2 U/mL (0.0-25.0); CA 19-9 (PANCREATIC) 13 U/mL (0-35); CARCINOEMBRYONIC ANTIGEN 7.9 ng/mL (0.0-4.7)
[2019-04-24 04:06] LABS: FERRITIN 341 ng/mL (15-150)
== END 2019-04-22 16:15 | DRG 641 ==
LOC: ER 16:21 → MSI 22:06
PROVIDERS: ADMIT Internal Medicine; ATTEND Internal Medicine
DX: E86.0 Dehydration (principal); F50.00 Anorexia nervosa, unspecified; E44.0 Moderate protein-calorie malnutrition; Z68.43 Body mass index [BMI] 50.0-59.9, adult; R62.7 Adult failure to thrive; E87.1 Hypo-osmolality and hyponatremia; E66.01 Morbid (severe) obesity due to excess calories; J44.9 Chronic obstructive pulmonary disease, unspecified; I10 Essential (primary) hypertension; D72.819 Decreased white blood cell count, unspecified; F25.0 Schizoaffective disorder, bipolar type; K21.9 Gastro-esophageal reflux disease without esophagitis; Z88.6 Allergy status to analgesic agent; Z88.8 Allergy status to other drugs, medicaments and biological substances; Z87.11 Personal history of peptic ulcer disease; Z90.49 Acquired absence of other specified parts of digestive tract; Z82.49 Family history of ischemic heart disease and other diseases of the circulatory system; Z98.84 Bariatric surgery status; Z79.899 Other long term (current) drug therapy
CPT/HCPCS: 36415-UA; 71045-TC; 80053-TC; 80183-90; 81001-TC; 81025-TC; 82150-TC; 82378-90; 82525-90; 82550-TC; 82607-90; 82728-90; 82746-90; 83540-90; 83550-90; 83605; 83690-TC; 83880-TC; 84484-TC; 84630-90; 84703-TC; 85025-TC; 85610-TC; 85730-TC; 86300-90; 86301-90; 86304-90; 93005; 94760; 96374; J1644; J7030; J7051; Q0161; Z7610